=== PATIENT | female | born 2000 | race African-American/Black ===

== ENCOUNTER → 2019-03-08 | Outpatient (CLI) | payer BC ==
[~2019-03-08] MED LIST: CITA10TA8 PO
[2019-03-08 12:26] LABS: BASO % 0 % (0-3); EOS # 0.1 x10^3/uL (0.0-0.7); EOS % 1 % (0-3); HEMATOCRIT 35.6 % (36.0-47.0); HEMOGLOBIN 11.6 g/dL (12.0-15.5); LYMPH # 2.1 x10^3/uL (1.0-4.8); LYMPH % 31 % (24-48); MEAN CORPUSCULAR HEMOGLOBIN 26 pg (25-35); MEAN CORPUSCULAR HGB CONC 33 g/dL (31-37); MEAN CORPUSCULAR VOLUME 80 fL (79-100); MONO # 0.5 x10^3/uL (0.0-1.1); MONO % 7 % (0-9); NEUT # 4.1 x10^3uL (1.8-7.7); NEUT % 60 % (31-73); PLATELET COUNT 268 x10^3/uL (140-400); RED BLOOD COUNT 4.48 x10^6/uL (3.50-5.40); RED CELL DISTRIBUTION WIDTH 18.2 % (11.5-14.5); WHITE BLOOD COUNT 6.8 x10^3/uL (4.0-11.0)
[2019-03-08 12:35] LABS: U PREG PATIENT NEGATIVE (NEG)
[2019-03-08 12:44] LABS: BARBITURATES NEG (NEG); BENZODIAZEPINES NEG (NEG); CANNABINOIDS POS (NEG); COCAINE NEG (NEG); METHADONE NEG (NEG); OPIATES NEG (NEG); PHENCYCLIDINE NEG (NEG)
[2019-03-08 12:45] LABS: AMPHETAMINE/METHAMPHETAMINE NEG (NEG)
[2019-03-08 12:46] LABS: ALBUMIN 3.3 g/dL (3.4-5.0); ALBUMIN/GLOBULIN RATIO 0.7 (1.0-1.7); CALCIUM 9.2 mg/dL (8.5-10.1); CREATININE 0.9 mg/dL (0.6-1.0); GFR 96.6; POTASSIUM 3.9 mmol/L (3.5-5.1); TOTAL BILIRUBIN 0.2 mg/dL (0.2-1.0); TOTAL PROTEIN 7.8 g/dL (6.4-8.2)
== END | disposition home or self-care (01) ==
LOC: LAB 11:52
PROVIDERS: ATTEND Psychiatry & Neurology Neurology
DX: R20.0 Anesthesia of skin (principal); Z79.899 Other long term (current) drug therapy
CPT/HCPCS: 36415; 80053; 80307; 81025; 85025; 85651

== ENCOUNTER → 2019-03-11 | Outpatient (CLI) | payer BC ==
[~2019-03-11] MED LIST changes: +GADOTERATE 5 MMOL/10ML VIAL. IVP ONE
--- NOTE | 2019-03-11 15:39 | KCIC ---
MRI Brain with and without contrast History: Headache, left-sided numbness Technique: Multiplanar, multi sequential pre and postcontrast MR imaging was performed of the brain. Comparison: None Findings: There is no evidence of recent infarct or cytotoxic edema. The ventricles, sulci, and cisterns are within normal limits in size and configuration. There is no significant midline shift, intraaxial mass effect, or focal abnormal extra-axial fluid collection. There is no significant signal abnormality of the brain parenchyma. There is no nodular parenchymal or leptomeningeal enhancement. There is preservation of the major intracranial flow-voids at the skull base. The cerebellar tonsils are normal in location. There is no significant abnormality of the pineal gland or pituitary gland. There is small right maxillary sinus mucous retention cyst about 0.7 cm, very minimal noncircumferential right maxillary sinus mucosal thickening. There is slightly disconjugate gaze. There is negligible patchy ethmoid air cell and left maxillary sinus mucosal thickening. The mastoid air cells are aerated. There is preserved marrow signal of the clivus. Impression: 1. There is no significant intracranial abnormality. Electronically signed by: Maycol Lopez MD (03/11/2019 3:36 PM) [email or web address]
== END | disposition home or self-care (01) ==
LOC: KCIC MRI 14:18
PROVIDERS: ATTEND Psychiatry & Neurology Neurology
DX: J34.1 Cyst and mucocele of nose and nasal sinus (principal); J34.89 Other specified disorders of nose and nasal sinuses
CPT/HCPCS: 70553; A9575

== ENCOUNTER → 2019-04-01 | Outpatient (CLI) | payer BC ==
[~2019-04-01] MED LIST changes: -GADOTERATE 5 MMOL/10ML VIAL. IVP ONE
[2019-04-01 15:16] LABS: FREE T4 1.04 ng/dL (0.76-1.46); THYROID STIM HORMONE (TSH) 0.902 uIU/mL (0.358-3.74)
== END | disposition home or self-care (01) ==
LOC: LAB 14:34
PROVIDERS: ATTEND Psychiatry & Neurology Neurology
DX: E07.89 Other specified disorders of thyroid (principal)
CPT/HCPCS: 36415; 84439; 84443

== ENCOUNTER → 2019-04-07 | Outpatient (CLI) | payer BC ==
[~2019-04-07] MED LIST changes: +GADOTERATE 5 MMOL/10ML VIAL. IVP ONE
--- NOTE | 2019-04-07 16:36 | KCIC ---
CERVICAL SPINE WO/W CONTRAST History: Left-sided numbness. Technique: Multiplanar, multi sequential pre and postcontrast MR imaging was performed of the cervical spine. Contrast: 18 mL Dotarem. Comparison: Brain MRI March 11, 2019 Findings: Study is mildly degraded by patient motion. Multiple sequences were repeated. Straightening of the normal cervical lordosis. Normal vertebral body height. No fracture. Normal appearance of the cervical spinal cord. No pathologic signal abnormality. No pathologic enhancement. Minimal multilevel disc degeneration. C5-C6 disc space loss with minimal bulge. No canal or neuroforaminal narrowing. New sphenoid sinus fluid and mucosal thickening. Impression: 1. Normal appearance of the cervical spinal cord. No canal or neuroforaminal narrowing. 2. New sphenoid sinus disease, can be seen with acute sinusitis in the appropriate clinical setting. Electronically signed by: Darren Morejon DO (04/07/2019 4:32 PM) [email or web address]
== END | disposition home or self-care (01) ==
LOC: KCIC MRI 14:55
PROVIDERS: ATTEND Psychiatry & Neurology Neurology
DX: M50.222 Other cervical disc displacement at C5-C6 level (principal); M50.322 Other cervical disc degeneration at C5-C6 level; J34.89 Other specified disorders of nose and nasal sinuses
CPT/HCPCS: 72156; A9575

== ENCOUNTER → 2019-04-15 | Outpatient (CLI) | payer BC ==
[~2019-04-15] MED LIST changes: -GADOTERATE 5 MMOL/10ML VIAL. IVP ONE
--- NOTE | 2019-04-15 15:12 | EKG ---
[facility] [address] [place] [address] Test Date: 2019-04-15 Test Time: 15:05:58 Pat Name: JUSTINE EISENBERG Department: Room: Gender: F [employer]: BRIELLE : 2000 Requested By: KRISTIN QUEVEDO Order Number: [id number] Reading MD: Measurements Intervals [place] Rate: 71 P: 32 WA: 162 QRS: 61 QRSD: 78 T: 42 QT: 372 QTc: 409 Interpretive Statements SINUS RHYTHM NORMAL ECG RI6.01 Unconfirmed report No previous ECG available for comparison
== END | disposition home or self-care (01) ==
LOC: EKG 14:38
PROVIDERS: ATTEND Psychiatry & Neurology Neurology
DX: G43.009 Migraine without aura, not intractable, without status migrainosus (principal)
CPT/HCPCS: 93005